=== PATIENT | male | born 1990 | race Two or more races ===

== ENCOUNTER 2021-10-21 19:40 | Emergency (ER) | payer OTHER ==
[~2021-10-21] VITALS: Ht 182.9 cm; Wt 81.6 kg
[2021-10-21 21:25] VITALS: BP 149/78
--- NOTE | 2021-10-21 21:34 | NUR ---
PT WAS ASSISTED TO HAVE HIS EYES CLEANED. BUT DOES NOT WANT TO CONTINUE. AND WALKED OUT.
--- NOTE | 2021-10-21 21:40 | NUR ---
Patient eloped from facility. ER JENNA TURNER notified. PT ambulatory with a steady gait. NO IV ACCESS NOTED.
== END 2021-10-21 23:48 | disposition home or self-care (01) ==
LOC: ER 19:42
DX: Z53.21 Procedure and treatment not carried out due to patient leaving prior to being seen by health care provider (principal)